=== PATIENT | male | born 2000 | race Caucasian/White ===

== ENCOUNTER 2025-10-27 19:06 | Emergency (ER) | payer BC ==
[~2025-10-27] VITALS: Ht 188 cm; Wt 96.5 kg
[2025-10-27 19:06] VITALS: TEMP 98
[~2025-10-27 19:06] MED LIST: CYCL-1 PO; HYDR-3965 PO; LIDO-52 TOP
--- NOTE | 2025-10-27 21:20 | Physician Documentation ---
History of Present Illness ~ Chief Complaint: Back Pain Stated Complaint: BACK PAIN Time Seen by MD: 20:46 Primary Medical Doctor: BRADY NORMAN 25-year-old male returns to the ED after recently being seen for lower back pain and sciatica. This is pain and symptoms have been consistent with his previous visit and has been taking all the prescribed medications which included ibuprof en Lidoderm it cyclobenzaprine and he has opted not to take the [place] that has prescribed He maintains he does not have any red flag symptoms including numbness tingling fevers or incontinence. He has been unable to follow up with physical therapy because of the holidays. States he is able to get up move around but has more pain when sitting Medication Reconciliation Allergies: Coded Allergies: No Known Allergies (Unverified , 02/25/15) Scheduled Cyclobenzaprine* (Cyclobenzaprine*), 1 TAB PO Q8H Lidocaine (Lidoderm), 1 PATCH TOP DAILY Scheduled PRN Hydrocodone Bit/Acetaminophen 5/325 MG ([place] 5/325 MG), 1-2 TAB PO Q4-6 hours PRN for pain Past Medical History Past Medical History: No Pertinent History Past Surgical History: no surgical history Alcohol Use: None Drug Use: none Lives with: Mother Lives In: Home Occupation: student Review of Systems All Other Systems at this time: Reviewed and Negative ROS As stated above in the HPI, otherwise all systems are reviewed and negative. Physical Exam Physical Exam Vital Signs: Temperature: 98.0, Source: Temporal, Heart Rate: 96, Respiratory Rate: 19, BP: 140/97, Pulse Oximetry: 98, Weight: 96.500 Oxygen Flow Rate: 0 Physical Exam General: Alert, no apparent distress. back: Tender to the lumbar region via palpation Respiratory: Lungs clear, no respiratory distress. Neurologic: Oriented x4. Psychiatric: Normal mood and affect. Skin: Normal color, warm and dry. No edema, no ecchymosis. Progress Results/Orders Results/Orders Vital Signs 10/27/25 10/27/25 10/27/25 19:06 20:00 21:28 Temp 98.0 Pulse 88 96 92 Resp 16 19 16 B/P (MAP) 140/89 140/97 (111) 140/97 Pulse Ox 98 98 95 O2 Flow Rate 0 0 Medical Decision Making Additional information obtaine: old records Findings I reiterated the care plan that was established at the patient's last visit and further explain the necessity for physical physical therapy which would include strengthening and flexibility. He showed reassurance verbally. He will continue to maintain moderate activity levels while his symptoms subside in take the prescribed medications. Upon discharge he had no further questions Differential Dx:Considerations: Bowel obstruction, Musculoskeletal pain, Strain Departure Disposition: HOME / SELF CARE / HOMELESS Impression: Primary Impression: Strain of lumbar region Discharge Instructions: Acute Back Pain, Adult Additional Instructions: Thank you for coming to the ED today please follow up with the physical therapy for further evaluation. Enjoy your cruise! Referrals: NO PRIMARY CARE PROVIDER (PCP) Signature Scribe Signature: iu Attestation: Scribed for Ray George [employer] Hoist Operator by Ray Fortune NP . 10/27/25 23:21 RAY GEORGE NP Oct 27, 2025 21:20
[2025-10-27 21:28] VITALS: BP 140/97; PULSE 92; RESP 16; O2SAT 95
== END 2025-10-27 21:30 | disposition home or self-care (01) ==
LOC: ER 19:06
DX: S39.012A Strain of muscle, fascia and tendon of lower back, initial encounter (principal); Z79.899 Other long term (current) drug therapy; X58.XXXA Exposure to other specified factors, initial encounter; Y93.89 Activity, other specified; Y92.89 Other specified places as the place of occurrence of the external cause; Y99.8 Other external cause status
CPT/HCPCS: 99282